=== PATIENT | female | born 1985 | race Caucasian/White ===

== ENCOUNTER 2018-09-01 10:41 | Emergency (ER) | payer SELFPAY ==
[~2018-09-01] VITALS: Ht 165.1 cm; Wt 67.0 kg
[2018-09-01] MEDS ORDERED: ONDANSETRON HCL 4MG/2ML INJ IV STA (11:21)
[2018-09-01] MEDS ORDERED: ASPIRIN 81MG TABLET PO ONE (11:30)
[2018-09-01] MEDS ORDERED: SODIUM CHLORIDE 0.9% 1,000 ML IV ONE (11:30)
[2018-09-01 11:34] LABS: BASOPHILS % 0.6 % (0.0-2.0); EOSINOPHILS % 1.3 % (0.0-5.0); HEMATOCRIT. 43.4 % (36.0-48.0); HEMOGLOBIN. 14.1 g/dL (12.0-16.0); MEAN CORPUSCULAR HEMOGLOBIN 27.2 pg (28.0-32.0); MEAN CORPUSCULAR VOLUME 83.8 fL (81.0-99.0); MEAN PLATELET VOLUME 8.1 fl (7.4-10.4); MONOCYTES % 6.2 % (2.0-8.0); NEUTROPHILS % 59.9 % (40.0-76.0); PLATELET 342 x1000/uL (130-400); RED BLOOD CELL COUNT 5.18 mill/uL (4.2-5.4); RED CELL DISTRIBUTION WIDTH 14.9 % (11.6-14.6)
[2018-09-01 11:37] LABS: CHLORIDE 107 mEq/L (98-107)
[2018-09-01] MEDS ORDERED: LIDOCAINE HCL/PF 1% 2ML VIAL ONE (11:50)
[2018-09-01 12:55] LABS: BG BASE EXCESS -3.2 mmol/L (-2.0-2.0); BG CARBOXYHEMOGLOBIN 0.3 % (0.5-1.5); BG DEOXYHEMOGLOBIN 3.1 % (0.0-5.0); BG FRACTION INSPIRED OXYGEN 21; BG METHEMOGLOBIN 0.1 % (0.0-1.5); BG OXYGEN SATURATION 96.9 % (92.0-98.5); BG OXYHEMOGLOBIN 96.5 % (94.0-97.0); BG PH 7.396 (7.350-7.450); BG PO2 94.7 mmHg (75.0-100.0); BG SAMPLE SITE RIGHT BRACHIAL; BG TOTAL HEMOGLOBIN 12.9 g/dL (12.0-18.0); BG VENT MODE ROOM AIR
[2018-09-01] MEDS ORDERED: CLOP75TA33 MT (13:12)
[2018-09-01] MEDS ORDERED: ATOR10TA69 MT (13:14)
[2018-09-01] MEDS ORDERED: AMLO5TAB88 MT (13:14)
[2018-09-01 14:00] VITALS: BP 102/67
== END 2018-09-01 14:30 | disposition home or self-care (01) ==
LOC: ER 10:41
DX: T59.891A Toxic effect of other specified gases, fumes and vapors, accidental (unintentional), initial encounter (principal); Y92.9 Unspecified place or not applicable; R07.9 Chest pain, unspecified
CPT/HCPCS: 36415; 36600; 71045; 80053; 82375; 82805; 83690; 83880; 84484; 85025; 93005; 96374; 99284; J2405; J3490; J7030; J7040; Z7610